=== PATIENT | male | born 1990 | race African-American/Black ===

== ENCOUNTER 2019-04-29 07:44 | Emergency (ER) | payer SELFPAY ==
[2019-04-29] MEDS ORDERED: Ketorolac *IM* INJ* 60 MG/2 ML VIAL IM ONE (08:37)
[2019-04-29 08:45] LABS: Urine Appearance Clear; Urine Bilirubin Negative (Negative); Urine Blood Negative (Negative); Urine Color Yellow; Urine Glucose Negative (Negative); Urine Ketones Negative (Negative); Urine Nitrite Negative (Negative); Urine Protein Negative (Negative); Urine Urobilinogen Negative (Negative)
[2019-04-29 08:53] LABS: ABS Basophils 0.1 10^3/ul (0-0.2); ABS Monocytes 1.2 10^3/ul (0-0.8); ABS Neutrophils 9.3 10^3/ul (1.5-7.7); Eosinophil % 0.2 %; Hematocrit 44 % (42-52); Lymphocyte % 21.8 %; Mean Corpuscular HGB Conc 34 g/dL (31-36); Mean Corpuscular Hemoglobin 32 pg (27-31); Mean Corpuscular Volume 93 fL (80-94); Mean Platelet Volume 8.1 fL (7.4-10.4); Nucleated Red Blood Cells % 0.1; Platelet Count 263 10^3/uL (150-450); Red Blood Count 4.77 10^6 /uL (4.18-5.48); Red Cell Distribution Width 14 % (10-15); White Blood Count 13.5 10^3/uL (3.5-10.8)
--- NOTE | 2019-04-29 09:15 | ED ---
Abdominal Pain/Male - HPI Summary HPI Summary: This patient is a 29-year-old otherwise healthy male presents to the ED with left-sided abdominal pain. Patient is endorsing pain to the left upper and left lower quadrant with left flank pain and pain over the rib cage. He states symptoms have been present 2.5 months. He was given prednisone and naproxen from an urgent care previously and which did not improve his symptoms. He denies any difficulty with breathing, shortness of breath, CP, diarrhea, constipation, nausea or vomiting. He states he's never had this pain in the past. He denies any significant PMHx. - History of Current Complaint Chief Complaint: EDAbdPain Stated Complaint: LEFT SIDE PAIN PER PT Time Seen by Provider: 04/29/19 07:46 Hx Obtained From: Patient Onset/Duration: Sudden Onset Timing: Constant Severity Initially: Moderate Severity Currently: Moderate Pain Intensity: 10 Pain Scale Used: 0-10 Numeric Location: Discrete At: LUQ Radiates: No Radiates to: Flank Character: Cramping Aggravating Factor(s): Nothing Alleviating Factor(s): Nothing Associated Signs And Symptoms: Positive: Negative - Risk Factors Testicular Torsion: Negative Cardiac Risk Factors: Negative - Allergies/Home Medications Allergies/Adverse Reactions: Allergies Allergy/AdvReac Type Severity Reaction Status Date / Time No Known Allergies Allergy Verified 04/29/19 07:51 PMH/Surg Hx/FS Hx/Imm Hx Previously Healthy: Yes - Surgical History Surgery Procedure, Year, and Place: apppendectomy - Immunization History Hx Pertussis Vaccination: No Immunizations Up to Date: Yes Infectious Disease History: No Infectious Disease History: Denies: Traveled Outside the [place] in Last 30 Days - Social History Occupation: Employed Full-time Lives: With Family Alcohol Use: Occasionally Hx Substance Use: No Substance Use Type: Reports: None Smoking Status (MU): Current Every Day Smoker Review of Systems Negative: Fever, Chills, Fatigue, Skin Diaphoresis Negative: Palpitations, Chest Pain Negative: Shortness Of Breath, Cough Positive: Abdominal Pain. Negative: Vomiting, Diarrhea, Nausea Genitourinary: Negative Positive: no symptoms reported, see HPI Positive: Arthralgia - left sided pain over the L rib cage Skin: Negative Neurological: Negative All Other Systems Reviewed And Are Negative: Yes Physical Exam Triage Information Reviewed: Yes Vital Signs On Initial Exam: Initial Vitals Temp Pulse Resp BP Pulse Ox 97.4 F 97 16 161/100 98 04/29/19 07:47 04/29/19 07:47 04/29/19 07:47 04/29/19 07:47 04/29/19 07:47 Vital Signs Reviewed: Yes Appearance: Positive: Well-Appearing, Well-Nourished Skin: Positive: Warm, Skin Color Reflects Adequate Perfusion Head/Face: Positive: Normal Head/Face Inspection Eyes: Positive: EOMI, Conjunctiva Clear Neck: Positive: Supple, No Lymphadenopathy Respiratory/Lung Sounds: Positive: Clear to Auscultation, Breath Sounds Present Cardiovascular: Positive: Pulses are Symmetrical in both Upper and Lower Extremities Musculoskeletal: Positive: Strength/ROM Intact, Pain @ - left rib cage and left side body worse with movement and lying flat - better with sitting upright Neurological: Positive: Speech Normal Psychiatric: Positive: Affect/Mood Appropriate Procedures - Sedation Patient Received Moderate/Deep Sedation with Procedure: No Diagnostics - Vital Signs Vital Signs Temp Pulse Resp BP Pulse Ox 04/29/19 07:47 97.4 F 97 16 161/100 98 - Laboratory Lab Results: Lab Results 04/29/19 04/29/19 Range/Units 08:35 08:45 WBC 13.5 H (3.5-10.8) 10^3/uL RBC 4.77 (4.18-5.48) 10^6 /uL Hgb 15.0 (14.0-18.0) g/dL Hct 44 (42-52) % MCV 93 (80-94) fL MCH 32 H (27-31) pg MCHC 34 (31-36) g/dL RDW 14 (10-15) % Plt Count 263 (150-450) 10^3/uL MPV 8.1 (7.4-10.4) fL Neut % (Auto) 68.8 % Lymph % (Auto) 21.8 % Villalba % (Auto) 8.7 % Eos % (Auto) 0.2 % Baso % (Auto) 0.5 % Absolute Neuts (auto) 9.3 H (1.5-7.7) 10^3/ul Absolute Lymphs (auto) 3.0 (1.0-4.8) 10^3/ul Absolute Monos (auto) 1.2 H (0-0.8) 10^3/ul Absolute Eos (auto) 0.0 (0-0.6) 10^3/ul Absolute Basos (auto) 0.1 (0-0.2) 10^3/ul Absolute Nucleated RBC 0.0 10^3/ul Nucleated RBC % 0.1 Urine Color Yellow Urine Appearance Clear Urine pH 5.0 (5-9) Ur Specific [place] 1.030 (1.010-1.030) Urine Protein Negative (Negative) Urine Ketones Negative (Negative) Urine Blood Negative (Negative) Urine Nitrate Negative (Negative) Urine Bilirubin Negative (Negative) Urine Urobilinogen Negative (Negative) Ur Leukocyte Esterase Negative (Negative) Urine Glucose Negative (Negative) Result Diagrams: 04/29/19 08:45 04/29/19 08:45 Lab Statement: Any lab studies that have been ordered have been reviewed, and results considered in the medical decision making process. Abdominal Pain Male Course/Dx - Course Course Of Treatment: During this course of treatment, the patient is evaluated for left-sided abdominal pain. Patient states he has had this pain 2.5 months. Symptoms are worse and to the left upper quadrant and left rib cage radiating around into the left flank. He denies any urinary symptoms. Denies any diarrhea, constipation, nausea, vomiting. He has remained afebrile and other vital signs are stable. He states he is eating and drinking okay. He denies any other symptoms. He does not currently have a PCP. Denies smoking or alcohol history. On evaluation, patient does have pain to the left upper quadrant and left flank on deep palpation. Symptoms are worse with stretching uwards and lying flat and better with standing. He is followed up with an urgent care provider, however has not followed up with the PCP as he does not currently have one. He states he is just visiting from out of town at this time. He has been taking naproxen and steroids without relief. No significant past medical history. Labs are obtained and are unremarkable. CT abdomen/ pelvis obtained: This is no abnormal findings. Patient was given 60 mg IM Toradol with good relief. He states he is currently asymptomatic. Total given S prescription. He will follow-up with a PCP if needed and continue stretches, moist heat and Toradol. - Diagnoses Differential Diagnosis/HQI/PQRI: Bowel Obstruction, Constipation, Renal Colic, Urinary Tract Infection Provider Diagnoses: Left sided abdominal pain Discharge ED - Sign-Out/Discharge Documenting (check all that apply): Patient Departure - Discharge Plan Condition: Stable Disposition: HOME Prescriptions: Ketorolac TAB * [Toradol TAB *] 10 mg PO Q6H #16 tab Patient Education Materials: Musculoskeletal Pain (ED) Referrals: No Primary Care Phys,NOPCP [Primary Care Provider] - Additional Instructions: Toradol up to four times daily as needed for pain Moist heat to the area - Billing Disposition and Condition Condition: STABLE Disposition: Home
[2019-04-29 09:17] LABS: Albumin 4.3 g/dL (3.2-5.2); Albumin/Globulin Ratio 1.6 (1-3); BUN/Creatinine Ratio 22.6 (8-20); Calcium 9.2 mg/dL (8.6-10.3); EGFR Non-African American 106.6 (>60); Globulin 2.7 g/dL (2-4); Potassium 3.9 mmol/L (3.5-5.0); Total Bilirubin 0.5 mg/dL (0.2-1.0)
[2019-04-29 11:12] VITALS: BP 144/92
== END 2019-04-29 11:11 | disposition home or self-care (01) ==
LOC: ED 07:44
DX: R10.12 Left upper quadrant pain (principal); R10.32 Left lower quadrant pain; Z90.89 Acquired absence of other organs; F17.200 Nicotine dependence, unspecified, uncomplicated
CPT/HCPCS: 36415; 74176; 80053; 81003; 83605; 83690; 85025; 96372; 99282; J1885